=== PATIENT | male | born 1970 | race Caucasian/White ===

== ENCOUNTER 2018-11-27 13:32 | Emergency (ER) | payer MEDICARE, MEDICAID ==
[2018-11-27 14:22] LABS: ADD MAN DIFF? NO
[2018-11-27 14:27] LABS: ABNORMAL IP MESSAGE 1; BASOPHILS % 0.4 % (0.0-2.0); HEMATOCRIT 36.2 % (42.0-52.0); HEMOGLOBIN 13.5 g/dl (14.0-18.0); LYMPHOCYTES # 0.6 10^3/ul (0.8-2.9); LYMPHOCYTES % 10.7 % (15.0-51.0); MEAN CORPUSCULAR HEMOGLOBIN 34.1 pg (29.0-33.0); MEAN CORPUSCULAR HGB CONC 37.3 g/dl (32.0-37.0); MEAN CORPUSCULAR VOLUME 91.4 fl (82.0-101.0); MEAN PLATELET VOLUME 9.5 fl (7.4-10.4); MONOCYTE # 0.9 10^3/ul (0.3-0.9); MONOCYTES % 18.1 % (0.0-11.0); NEUTROPHIL # 3.6 10^3/ul (1.6-7.5); NEUTROPHILS % 70.6 % (39.0-77.0); PLATELET COUNT 106 10^3/UL (140-415); POSITIVE DIFF @See below; RED BLOOD COUNT 3.96 10^6/ul (4.70-6.10); RED CELL DISTRIBUTION WIDTH 11.5 % (11.5-14.5)
[2018-11-27 14:27] LABS: WHITE BLOOD COUNT 5.1 10^3/ul (4.8-10.8)
[2018-11-27] MEDS: ONDANSETRON 4 MG INJ IV (14:34)
[2018-11-27] MEDS: HYDROmorphONE 1 MG/ML SYG IV (14:34)
[2018-11-27 14:46] LABS: ALANINE AMINOTRANSFERASE 24 IU/L (13-69); ALBUMIN/GLOBULIN RATIO 1.35; ALKALINE PHOSPHATASE 90 IU/L (42-121); ANION GAP 18 (5-13); ASPARTATE AMINO TRANSFERASE 92 IU/L (15-46); BILIRUBIN,INDIRECT 1.4 mg/dl (0-1.1); BILIRUBIN,TOTAL 1.4 mg/dl (0.2-1.3); BLOOD UREA NITROGEN 24 mg/dl (7-20); CALCIUM 9.9 mg/dl (8.4-10.2); CARBON DIOXIDE 25 mmol/L (21-31); CHLORIDE 83 mmol/L (97-110); CREATININE 1.56 mg/dl (0.61-1.24); Estimated GFR 48 mL/min (>60); GLUCOSE 123 mg/dl (70-220); LIPASE 123 U/L (23-300); POTASSIUM 3.5 mmol/L (3.5-5.1); SODIUM 126 mmol/L (135-144); TOTAL PROTEIN 8.7 g/dl (6.1-8.1)
[2018-11-27] MEDS: SOD CHLORIDE 0.9% 500 ML IV (16:11)
[2018-11-27] MEDS: SOD CHLORIDE 0.9% 1,000 ML IV (16:11)
== END 2018-11-27 17:47 | disposition home or self-care (01) ==
LOC: E/R 13:32
DX: R10.11 Right upper quadrant pain (principal); R11.10 Vomiting, unspecified; I10 Essential (primary) hypertension
CPT/HCPCS: 36415; 74176; 76705; 80053; 83690; 85025; 96374; 96375; 99285-25